=== PATIENT | male | born 1990 | race Caucasian/White ===

== ENCOUNTER 2017-06-01 20:43 | Emergency (ER) | payer SELFPAY ==
[2017-06-01] MEDS ORDERED: HYDROCODONE/ACETAMINOPHEN 5-325 MG 6 TAB/DSPK PO PRN (23:34)
[2017-06-01] MEDS ORDERED: PENICILLIN V POTASSIUM 500 MG TABLET PO ONE (23:35)
--- NOTE | 2017-06-01 23:36 | ER Document Report ---
ED General - General Chief Complaint: Toothache Stated Complaint: TOOTHACHE Time Seen by Provider: 06/01/17 23:24 Notes: Patient is a 26-year-old male who presents with severe pain to his left lower jaw. Describes it as a severe, constant, aching pain. Notes that eating or drinking anything worsens the pain. He has been trying ibuprofen and Tylenol at home without any significant improvement of the pain. He has not seen a dentist regarding this concern. No history of similar pains in the past. Denies any fever, constitutional symptoms, difficulty breathing or swallowing. TRAVEL OUTSIDE OF THE [place] IN LAST 30 DAYS: No Past Medical History - General Information source: Patient - Social History Smoking Status: Never Smoker Frequency of alcohol use: Occasional Drug Abuse: None Lives with: Family Family History: Reviewed & Not Pertinent Patient has suicidal ideation: No Patient has homicidal ideation: No Renal/ Medical History: Denies: Hx Peritoneal Dialysis Review of Systems - Review of Systems Notes: Constitutional: Negative for fever. HENT: Negative for sore throat. Positive for dental pain Eyes: Negative for visual changes. Cardiovascular: Negative for chest pain. Respiratory: Negative for shortness of breath. Gastrointestinal: Negative for abdominal pain, vomiting or diarrhea. Genitourinary: Negative for dysuria. Musculoskeletal: Negative for back pain. Skin: Negative for rash. Neurological: Negative for headaches, weakness or numbness. 10 point ROS negative except as marked above and in HPI. Physical Exam - Vital signs Vitals: Temp Pulse Resp BP Pulse Ox 98.5 F 80 16 148/88 H 100 06/01/17 21:41 06/01/17 21:41 06/01/17 21:41 06/01/17 21:41 06/01/17 21:41 Interpretation: Hypertensive Notes: PHYSICAL EXAMINATION: GENERAL: Well-appearing, well-nourished and in no acute distress. HEAD: Atraumatic, normocephalic. EYES: sclera anicteric, conjunctiva are normal. ENT: Moist mucous membranes. Diffusely poor dentition. Airway is widely patent. No mucosal inflammation or obvious abscesses. NECK: Normal range of motion LUNGS: Normal work of breathing HEART: 2+ radial pulses bilaterally EXTREMITIES: no pitting or edema. No cyanosis. NEUROLOGICAL: No focal neurological deficits. Moves all extremities spontaneously and on command. PSYCH: Normal mood, normal affect. SKIN: Warm, Dry, normal turgor, no rashes or lesions noted. Course - Re-evaluation Re-evalutation: 06/01/17 23:35 Presentation is most consistent with likely an infected tooth. Airway is patent. Vitals within normal limits. Patient is able swallow without any difficulty. There is no significant facial swelling. Patient will be started on antibiotics and a limited number of pain medications. I've instructed to follow-up with dentistry as earliest ability for definitive management. Return precautions and follow-up recommendations have been discussed at length. - Vital Signs Vital signs: Temp Pulse Resp BP Pulse Ox 98.6 F 71 17 144/87 H 98 06/01/17 23:40 06/01/17 23:40 06/01/17 21:42 06/01/17 23:40 06/01/17 23:40 Discharge - Discharge Clinical Impression: Pain, dental Condition: Good Disposition: HOME, SELF-CARE Additional Instructions: You have been seen for dental pain. It is very important that you follow-up with a dentist for definitive care. Please return if you develop fever greater than 101, swelling in your face, vomiting, difficulty breathing or swallowing, or any other symptoms that are concerning to you. For pain you should take ibuprofen 600 mg every 6 hours as needed. Prescriptions: Hydrocodone/Acetaminophen [[place] 5-325 Tablet] 1 each PO ASDIR PRN #6 tablet PRN Reason: Penicillin V Potassium [Penicillin Vk 500 mg Tablet] 500 mg PO BID #20 tablet
[2017-06-01 23:43] VITALS: BP 144/87
== END 2017-06-01 23:45 | disposition home or self-care (01) ==
LOC: ER 20:43
DX: K08.9 Disorder of teeth and supporting structures, unspecified (principal)
CPT/HCPCS: 99282

== ENCOUNTER 2017-07-05 14:46 | Emergency (ER) | payer SELFPAY | END 2017-07-05 15:40 | disposition left against medical advice (07) | LOC: ER 14:46 | DX: Z53.21 Procedure and treatment not carried out due to patient leaving prior to being seen by health care provider (principal) ==

== ENCOUNTER 2017-09-06 19:09 | Emergency (ER) | payer SELFPAY ==
[2017-09-06 19:21] VITALS: BP 134/69
--- NOTE | 2017-09-06 19:38 | ER Document Report ---
ED General - General Chief Complaint: Toothache Stated Complaint: TOOTHACHE Time Seen by Provider: 09/06/17 19:27 Mode of Arrival: Ambulatory Information source: Patient, Parent Notes: Patient is a 27-year-old male comes emergency room with what he states is a 5 day onset of left back lower dental pain. Patient states that his sent him here because she cannot take his inability to sleep. Patient states that she called his dentist he can get in to see the dentist for 3 weeks. Patient also interjects that he thinks this might be a wisdom tooth that is impacted. He denies any other medical problems. TRAVEL OUTSIDE OF THE [place] IN LAST 30 DAYS: No - HPI Onset: Other - 5 days Onset/Duration: Sudden, Constant, Worse Quality of pain: Stabbing, Throbbing. denies: No pain Severity: Severe Pain Level: 5 Associated symptoms: Earache Exacerbated by: Other - Eating temperature change hot and cold and air coming across the top Relieved by: Denies Similar symptoms previously: Yes Recently seen / treated by doctor: No Past Medical History - Social History Smoking Status: Current Every Day Smoker Cigarette use (# per day): Yes - 15 Frequency of alcohol use: Occasional Drug Abuse: None Lives with: Spouse/Significant other Family History: None, Reviewed & Not Pertinent Patient has suicidal ideation: No Patient has homicidal ideation: No Renal/ Medical History: Denies: Hx Peritoneal Dialysis Review of Systems - Review of Systems Constitutional: No symptoms reported EENT: No symptoms reported, Other - Dental pain Cardiovascular: No symptoms reported Respiratory: No symptoms reported Gastrointestinal: No symptoms reported Genitourinary: No symptoms reported Male Genitourinary: No symptoms reported Musculoskeletal: No symptoms reported Skin: No symptoms reported Hematologic/Lymphatic: No symptoms reported Neurological/Psychological: No symptoms reported -: Yes All other systems reviewed and negative Physical Exam - Vital signs Vitals: Temp Pulse Resp BP Pulse Ox 98.1 F 89 16 134/69 H 97 09/06/17 19:20 09/06/17 19:20 09/06/17 19:20 09/06/17 19:20 09/06/17 19:20 - General General appearance: Other - Uncomfortable. In distress: None - HEENT Head: Normocephalic, Other - Examination patient's left side of his face where the tooth on the left lower bottom showed no real sign of swelling or facial edema. Eyes: Normal Ears: Normal Tympanic membrane: Normal Sinus: Normal Nasal: Normal. No: Septal hematoma Mouth/Lips: Normal Mucous membranes: Normal, Moist Teeth diagram: 1 - Decayed tooth down to the gumline mild erythema with what appears to be an exudate coming from the anterior portion of the gumline Pharynx: Normal Neck: Normal - Respiratory Respiratory status: No respiratory distress Chest status: Nontender Breath sounds: Normal. No: Rales, Rhonchi, Stridor, Wheezing - Cardiovascular Rhythm: Regular Heart sounds: Normal auscultation Murmur: No - Neurological Cognition: Normal Orientation: AAOx4 Xi Coma Scale Eye Opening: Spontaneous [place] Coma Scale Verbal: Oriented [place] Coma Scale Motor: Obeys Commands Xi Coma Scale Total: 15 Speech: Normal - Skin Skin Temperature: Warm Skin Moisture: Dry Skin Color: Normal, [place] - Vital Signs Vital signs: Temp Pulse Resp BP Pulse Ox 98.1 F 89 16 134/69 H 97 09/06/17 19:20 09/06/17 19:20 09/06/17 19:20 09/06/17 19:20 09/06/17 19:20 - Transfer of Care Notes: 09/06/17 19:39 On physical examination patient told me that he has never experienced this type of pain in his life and feels like his head is going to explode that he cannot take the pain anymore. I offered him a dental block before he could finish telling him what it was he refused to have one done he is afraid of needles and does not want the dental block. I explained to him in depth that this may be simply gives him instant relief at least for a few hours and he did not care. Discharge - Discharge Condition: Stable Disposition: HOME, SELF-CARE Instructions: Clindamycin ([facility]), Toothache ([facility]) Additional Instructions: As we discussed we cannot fix the dental problem out of emergency room. You must follow-up with your primary care provider or your dentist for further intervention. Usually when we apply antibiotics to an infected tooth pain will go away within 24 hours. He may also take ibuprofen 800 mg every 8 hours with food to keep the pain down. Ibuprofen actually works on the general inflammation that is caused by the discomfort and pain. Should you have any increase in swelling spike a fever before you can get to the dentist return to ER for a recheck. If you do not have prescription coverage and you have a smart phone you may add an appendectomy that is free called good Rx this will allow you to purchase the medications necessary at a reduced cost. Prescriptions: Clindamycin HCl [Cleocin 75 mg Capsule] 1 cap PO Q6 40 Days #28 capsule Ibuprofen 800 mg PO TID #30 tablet Tramadol HCl 2 tab PO TID #20 tablet
== END 2017-09-06 20:10 | disposition home or self-care (01) ==
LOC: ER 19:09
DX: K04.7 Periapical abscess without sinus (principal); F17.210 Nicotine dependence, cigarettes, uncomplicated
CPT/HCPCS: 99282

== ENCOUNTER 2017-09-28 20:55 | Emergency (ER) | payer OTHER ==
--- NOTE | 2017-09-28 22:05 | RADIOLOGY REPORT (SQ) ---
EXAM DESCRIPTION: FINGER LEFT COMPLETED DATE/TIME: 09/28/2017 9:42 pm REASON FOR STUDY: injured left forefinger COMPARISON: None. NUMBER OF VIEWS: Three views. TECHNIQUE: AP, lateral, and oblique images acquired of the left second finger. LIMITATIONS: None. FINDINGS: MINERALIZATION: Normal. BONES: No acute fracture or dislocation. No worrisome bone lesions. SOFT TISSUES: No soft tissue swelling. No foreign body. OTHER: No other significant finding. IMPRESSION: No significant findings. COMMENT: SITE OF TRAUMA/COMPLAINT MARKED/STAMP COMPLETED: Yes TECHNICAL DOCUMENTATION: JOB ID: [id number] [employer]- All Rights Reserved
[2017-09-28] MEDS ORDERED: HYDROCODONE/ACETAMINOPHEN 5-325 MG TABLET PO ONE (23:03)
--- NOTE | 2017-09-28 23:05 | ER Document Report ---
HPI - HPI Patient complains to provider of: left index finger injury Pain Level: 4 Context: Patient is a 27-year-old male that comes emergency department for chief complaint of injury to his left index finger. He states he accidentally hit his finger with the stapler while working on a roof tonight. He states that there was some bleeding from the finger. His tetanus is up-to-date within 5 years. He denies any other injuries. He denies any daily medications. - DERM Skin Color: Normal Past Medical History - General Information source: Patient - Social History Smoking Status: Current Every Day Smoker Drug Abuse: None Lives with: Family Family History: None, Reviewed & Not Pertinent Patient has suicidal ideation: No Patient has homicidal ideation: No - Medical History Medical History: Negative Renal/ Medical History: Denies: Hx Peritoneal Dialysis Surgical Hx: Negative - Immunizations Immunizations up to date: Yes Hx Diphtheria, Pertussis, Tetanus Vaccination: Yes Vertical Provider Document - CONSTITUTIONAL General Appearance: WD/WN, No Apparent Distress - INFECTION CONTROL TRAVEL OUTSIDE OF THE [place] IN LAST 30 DAYS: No - HEENT HEENT: Atraumatic, Normal ENT Exam, Normocephalic - NECK Neck: Normal Inspection - RESPIRATORY Respiratory: Breath Sounds Normal, No Respiratory Distress O2 Sat by Pulse Oximetry: 98 - CARDIOVASCULAR Cardiovascular: Regular Rate, Regular Rhythm - GI/ABDOMEN Gastrointestinal: Abdomen Soft, Abdomen Non-Tender - BACK Back: Normal Inspection - MUSCULOSKELETAL/EXTREMETIES Musculoskeletal/Extremeties: Tender - Left index finger with a small superficial cut over the lateral side of the finger, small crack over the nail, no paronychia, normal capillary refill and sensation, range of motion is normal , normal hand, wrist, forearm exam otherwise. Course - Re-evaluation Re-evalutation: X-ray was performed before I saw the patient, reviewed and is negative. Patient has a cracked fingernail, has a tiny abrasion over the side of the finger, no repairable wounds, no concerning deficits or abnormalities noted on exam. No paronychia. Good capillary refill and sensation. Recommended he take [id number] anti-inflammatories, wound was cleaned and dressed while he was here, discussed follow-up and return precautions, patient states satisfaction and agreement. - Vital Signs Vital signs: Temp Pulse Resp BP Pulse Ox 98.3 F 85 16 136/82 H 98 09/28/17 21:30 09/28/17 21:30 09/28/17 21:30 09/28/17 21:30 09/28/17 21:30 - Diagnostic Test Radiology reviewed: Image reviewed, Reports reviewed Discharge - Discharge Clinical Impression: Injury of left index finger Qualifiers: Encounter type: initial encounter Qualified Code(s): S69.92XA - Unspecified injury of left wrist, hand and finger(s), initial encounter Condition: Stable Disposition: HOME, SELF-CARE Additional Instructions: Your x-ray does not show any fracture. Keep the cut of the finger clean, clean with soap and water, apply topical antibiotic, keep dressed. The swelling should resolve with time, this should take a few days before symptoms resolve. Take medication such as Tylenol or ibuprofen for pain. Follow-up with primary care. Return to the emergency department for any concerning or worsening symptoms including swelling, redness, discolored drainage, or any other concerning symptoms.
[2017-09-28 23:45] VITALS: BP 125/78
== END 2017-09-28 23:44 | disposition home or self-care (01) ==
LOC: ER 20:55
DX: S60.411A Abrasion of left index finger, initial encounter (principal); W29.8XXA Contact with other powered hand tools and household machinery, initial encounter; Y93.H3 Activity, building and construction; Y99.0 Civilian activity done for income or pay; F17.200 Nicotine dependence, unspecified, uncomplicated
CPT/HCPCS: 99283

== ENCOUNTER 2017-11-01 18:17 | Emergency (ER) | payer OTHER ==
[2017-11-01] MEDS ORDERED: HYDROCODONE/ACETAMINOPHEN 5-325 MG TABLET PO ONE (19:31)
--- NOTE | 2017-11-01 19:32 | ER Document Report ---
HPI - HPI Patient complains to provider of: r shoulder pain Onset: Other Onset/Duration: Worse - Years, worse over the past month Quality of pain: Sharp Pain Level: 4 Context: Patient presents complaining of right shoulder joint pain for several years that worsened over the past month. Patient states that he is unable to lift his arm due to the extreme pain today. Patient denies any new injury. 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 Associated Symptoms: Other - Right shoulder joint pain Exacerbated by: Movement Relieved by: Denies Similar symptoms previously: No Recently seen / treated by doctor: No - ROS ROS below otherwise negative: Yes Systems Reviewed and Negative: Yes All other systems reviewed and negative - MUSCULOSKELETAL Musculoskeletal: REPORTS: Extremity pain - DERM Skin Color: Normal Skin Problems: None Past Medical History - General Information source: Patient - Social History Smoking Status: Current Every Day Smoker Smoking Education Provided: Yes Frequency of alcohol use: None Drug Abuse: None Occupation: [employer] Lives with: Family Family History: None, Reviewed & Not Pertinent - Medical History Medical History: Negative Pulmonary Medical History: Reports: Hx Asthma - childhood Renal/ Medical History: Denies: Hx Peritoneal Dialysis Surgical Hx: Negative - Immunizations Immunizations up to date: Yes Hx Diphtheria, Pertussis, Tetanus Vaccination: Yes Vertical Provider Document - CONSTITUTIONAL Agree With Documented VS: Yes Exam Limitations: No Limitations General Appearance: WD/WN, No Apparent Distress - INFECTION CONTROL TRAVEL OUTSIDE OF THE [place] IN LAST 30 DAYS: No - HEENT HEENT: Atraumatic, Normocephalic - NECK Neck: Normal Inspection - RESPIRATORY Respiratory: Breath Sounds Normal, No Respiratory Distress - CARDIOVASCULAR Cardiovascular: Regular Rate, Regular Rhythm, No Murmur Pulses: Normal: Radial - BACK Back: Normal Inspection - MUSCULOSKELETAL/EXTREMETIES Musculoskeletal/Extremeties: MAEW, Tender - Right shoulder joint tenderness over AC joint. Tenderness increases with right shoulder extension, No Edema Notes: No dislocation or deformity - NEURO Level of Consciousness: Awake, Alert, Appropriate Motor/Sensory: No Motor Deficit - DERM Integumentary: Warm, Dry, No Rash Course - Diagnostic Test Radiology reviewed: Image reviewed, Reports reviewed Procedures - Immobilization Right Shoulder Pre-Proc Neuro Vasc Exam: Normal Immobilizer type: Shoulder immobilizer Performed by: PCT Post-Proc Neuro Vasc Exam: Normal Alignment checked and good: Yes Discharge - Discharge Clinical Impression: Sprain of shoulder, right Qualifiers: Encounter type: initial encounter Shoulder sprain type: unspecified sprain Qualified Code(s): S43.401A - Unspecified sprain of right shoulder joint, initial encounter Condition: Stable Disposition: HOME, SELF-CARE Instructions: Oral Narcotic Medication ([facility]), Shoulder Injury ([facility]), Sling as Treatment ([facility]) Additional Instructions: Return immediately for any new or worsening symptoms Followup with your primary care provider, call tomorrow to make a followup appointment Wear sling for the next 4 days and then remove. Follow-up with orthopedic doctor for further evaluation, call tomorrow for an appointment Prescriptions: Hydrocodone/Acetaminophen [[place] 5-325 Tablet] 1 each PO Q4 PRN #10 tablet PRN Reason: Forms: Smoking Cessation Education, Return to Work Referrals: [facility] [Provider Group] - Follow up tomorrow
--- NOTE | 2017-11-01 20:15 | RADIOLOGY REPORT (SQ) ---
EXAM DESCRIPTION: SHOULDER RIGHT 2 OR MORE VIEWS COMPLETED DATE/TIME: 11/01/2017 7:55 pm REASON FOR STUDY: r shoulder pain COMPARISON: None. NUMBER OF VIEWS: Three views. TECHNIQUE: Internal rotation, external rotation, and Y view images acquired of the right shoulder. LIMITATIONS: None. FINDINGS: MINERALIZATION: Normal. BONES: No acute fracture or dislocation. No worrisome bone lesions. JOINTS: No dislocation. VISUALIZED LUNGS AND RIBS: No pneumothorax. No rib fracture. SOFT TISSUES: No radiopaque foreign body. OTHER: No other significant finding. IMPRESSION: NO RADIOGRAPHIC EVIDENCE OF ACUTE INJURY. TECHNICAL DOCUMENTATION: JOB ID: [id number] 2010 [employer]- All Rights Reserved
[2017-11-01 20:33] VITALS: BP 130/92
== END 2017-11-01 21:00 | disposition home or self-care (01) ==
LOC: ER 18:17
DX: S43.401A Unspecified sprain of right shoulder joint, initial encounter (principal); F17.210 Nicotine dependence, cigarettes, uncomplicated; X50.0XXA Overexertion from strenuous movement or load, initial encounter; Y93.H3 Activity, building and construction; Y99.0 Civilian activity done for income or pay
CPT/HCPCS: 99283; 73030; L3650

== ENCOUNTER 2017-11-13 17:12 | Emergency (ER) | payer SELFPAY ==
[2017-11-13 17:22] VITALS: BP 131/65
[2017-11-13] MEDS ORDERED: LIDOCAINE 1% INJ-PF (10 MG/ML) 30 ML SDV INJ ONE (18:01)
--- NOTE | 2017-11-13 18:43 | ER Document Report ---
HPI - HPI Patient complains to provider of: Finger laceration Onset: Just prior to arrival Onset/Duration: Sudden Quality of pain: Achy Pain Level: 4 Context: Patient states he was attempting to cut a rope and accidentally missed cutting his finger. Patient with laceration over the knuckle of his left second finger. Patient is right-hand dominant. Patient reports tetanus immunization is currently up-to-date. Patient denies any change in mobility of finger. Associated Symptoms: Other - Finger laceration Exacerbated by: Movement Relieved by: Denies Similar symptoms previously: Yes Recently seen / treated by doctor: No - ROS ROS below otherwise negative: Yes Systems Reviewed and Negative: Yes All other systems reviewed and negative - NEURO Neurology: DENIES: Weakness - GASTROINTESTINAL Gastrointestinal: DENIES: Nausea - MUSCULOSKELETAL Musculoskeletal: REPORTS: Extremity pain - DERM Skin Problems: Laceration Past Medical History - General Information source: Patient - Social History Smoking Status: Current Every Day Smoker Chew tobacco use (# tins/day): No Frequency of alcohol use: Occasional Drug Abuse: None Occupation: [employer] Lives with: Family Family History: None, Reviewed & Not Pertinent Patient has suicidal ideation: No Patient has homicidal ideation: No Pulmonary Medical History: Reports: Hx Asthma - childhood Renal/ Medical History: Denies: Hx Peritoneal Dialysis Past Surgical History: Reports: Hx Tonsillectomy - Immunizations Immunizations up to date: Yes Hx Diphtheria, Pertussis, Tetanus Vaccination: Yes Vertical Provider Document - CONSTITUTIONAL Agree With Documented VS: Yes Exam Limitations: No Limitations General Appearance: WD/WN, No Apparent Distress - INFECTION CONTROL TRAVEL OUTSIDE OF THE [place] IN LAST 30 DAYS: No - HEENT HEENT: Atraumatic, Normocephalic - NECK Neck: Normal Inspection - RESPIRATORY Respiratory: No Respiratory Distress O2 Sat by Pulse Oximetry: 98 - MUSCULOSKELETAL/EXTREMETIES Musculoskeletal/Extremeties: MAEW, FROM, Tender - left 2nd finger lac over PIP joint, No Edema Notes: no tendon deficit - NEURO Level of Consciousness: Awake, Alert, Appropriate Motor/Sensory: No Motor Deficit, No Sensory Deficit - DERM Integumentary: Warm, Laceration Course - Vital Signs Vital signs: Temp Pulse Resp BP Pulse Ox 99.3 F 95 16 131/65 H 98 11/13/17 17:21 11/13/17 17:21 11/13/17 17:21 11/13/17 17:21 11/13/17 17:21 Procedures - Immobilization Left 2nd digit Pre-Proc Neuro Vasc Exam: Normal Immobilizer type: Finger splint (Static) Performed by: RN Post-Proc Neuro Vasc Exam: Normal Alignment checked and good: Yes - Laceration/Wound Repair Left 2nd digit Wound length (cm): 1.5 Wound's Depth, Shape: Linear Anesthetic type: 1% Lidocaine Wound explored: Clean, No foreign body removed Suture Size/Type: 5:0, Nylon Number of Sutures: 3 Layer Closure?: No Post-procedure wound care: Sterile dressing applied, Splint applied Post-procedure NV exam normal: Yes Complications: No Discharge - Discharge Clinical Impression: Finger laceration Qualifiers: Encounter type: initial encounter Finger: index finger Damage to nail status: without damage Foreign body presence: without foreign body Laterality: left Qualified Code(s): S61.211A - Laceration without foreign body of left index finger without damage to nail, initial encounter Condition: Stable Disposition: HOME, SELF-CARE Additional Instructions: Return immediately for any new or worsening symptoms Followup with your primary care provider, call tomorrow to make a followup appointment Suture removal in 11 days LACERATION CARE: Your laceration has been sutured to keep the skin edges aligned during healing. The time of suture removal depends on the nature and location of your cut. Please follow the care instructions the doctor has outlined for you and return for further care, according to the schedule you've been given. Keep the wound and dressing clean. Unless you were told otherwise, you may shower daily, blotting the wound dry with a clean, unused towel. At other times, If the dressing gets wet or blood soaked, remove it and blot the wound dry, then reapply a new dressing. Unless you were instructed otherwise, dressings should be changed at least daily. If any signs of infection occur (swelling, redness, drainage, increasing tenderness, red streaks, tender lumps in the armpit or groin above the laceration, or fever), see the doctor immediately. SOAP CLEANSING: Gently wash the wound daily using a mild soap (like Ivory, Phisoderm, Neutrogena). Use warm water, rubbing gently until all debris, ooze, and crusting have been washed from the wound. Allow to dry briefly (about 10 minutes) after cleaning. Repeat this cleansing at least three times a day for the first two days and then once or twice a day. ANTIBIOTIC OINTMENT PROTECTION: Your wounds are such that dressing them is not practical or optional. After cleansing, you should apply a thin coating of antibiotic ointment ( Bacitracin, not Neosporin) to the wounds at least three times daily. This lessens infection risk, and may decrease the amount of scarring. Use a q-tip or dull butter knife, not your finger, to apply this ointment. Any debris or ooze which builds up in the ointment should be gently rubbed off with a sterile gauze pad. Harder crusting may need to be gently scrubbed off with a clean wash cloth with soap and warm water, perhaps applying a warm, wet wash cloth to the wound for ten minutes first. Development of redness, severe itching, or blistering may mean allergy to the ointment. See the doctor. ORAL NARCOTIC MEDICATION: You have been given a prescription for pain control. This medication is a narcotic. It's best taken with food, as nausea can result if taken on an empty stomach. Don't operate machinery or drive within six hours of taking this medication. Do not combine this medicine with alcohol, or with any medication which can cause sedation (such as cold tablets or sleeping pills) unless you get permission from the physician. Narcotics tend to cause constipation. If possible, drink plenty of fluids and eat a diet high in fiber and fruits. FOLLOW-UP CARE: Your sutures should be removed in _11____ days. To facilitate a timely removal of your sutures, you may return to the Emergency Department at [facility]. You do not need to call for an appointment, but the best time to come in for suture removal is early in the morning. If you have been referred to another physician for follow-up care, call that physicians office for an appointment as you were instructed. If you experience a significant change in your laceration, or if you are concerned there may be an infection (swelling, redness, drainage, increasing tenderness, red streaks, tender lumps in the armpit or groin above the laceration, or fever) , return to the Emergency Department immediately re-evaluation. Referrals: YUVAL DELGADO, [ACTIVE STAFF] - Follow up as needed
== END 2017-11-13 19:16 | disposition home or self-care (01) ==
LOC: ER 17:12
PROC: 0HQGXZZ Repair Left Hand Skin, External Approach (ICD-10-PCS; principal; 2017-11-13)
DX: S61.211A Laceration without foreign body of left index finger without damage to nail, initial encounter (principal); W45.8XXA Other foreign body or object entering through skin, initial encounter; F17.200 Nicotine dependence, unspecified, uncomplicated
CPT/HCPCS: 99282; 12001; J3490

== ENCOUNTER 2018-01-06 11:40 | Emergency (ER) | payer SELFPAY ==
[2018-01-06] MEDS ORDERED: PENICILLIN V POTASSIUM 500 MG TABLET PO ONE (13:43)
[2018-01-06] MEDS ORDERED: HYDROCODONE/ACETAMINOPHEN 5-325 MG TABLET PO ONE (13:43)
[2018-01-06] MEDS ORDERED: IBUPROFEN 800 MG TABLET PO ONE (13:43)
--- NOTE | 2018-01-06 13:47 | ER Document Report ---
HPI - HPI Patient complains to provider of: jaw pain Pain Level: 5 Context: 27 yo male c/o left jaw pain and swelling x 2 days no fever Associated Symptoms: None Exacerbated by: Food, Other - swallowing Relieved by: Denies Similar symptoms previously: No Recently seen / treated by doctor: No - ROS Systems Reviewed and Negative: Yes All other systems reviewed and negative Past Medical History - General Information source: Patient - Social History Smoking Status: Current Every Day Smoker Frequency of alcohol use: Occasional Drug Abuse: None Occupation: construction Lives with: Family Family History: None, Reviewed & Not Pertinent - Medical History Medical History: Negative Pulmonary Medical History: Reports: Hx Asthma - childhood Renal/ Medical History: Denies: Hx Peritoneal Dialysis Past Surgical History: Reports: Hx Tonsillectomy - Immunizations Immunizations up to date: Yes Hx Diphtheria, Pertussis, Tetanus Vaccination: Yes Vertical Provider Document - CONSTITUTIONAL Agree With Documented VS: Yes Exam Limitations: No Limitations - INFECTION CONTROL TRAVEL OUTSIDE OF THE [place] IN LAST 30 DAYS: No - HEENT HEENT: Atraumatic Mouth Diagram: 1 - pain, advanced decay. no gingival abscess - NECK Neck: Normal Inspection, Supple - RESPIRATORY Respiratory: Breath Sounds Normal, No Respiratory Distress O2 Sat by Pulse Oximetry: 98 - CARDIOVASCULAR Cardiovascular: Regular Rate, Regular Rhythm - NEURO Level of Consciousness: Awake, Alert, Appropriate - DERM Integumentary: Warm, Dry Course - Re-evaluation Re-evalutation: 01/06/18 13:46 H&P c/w dental infection. no signs of Mahin's or peritonsillar abscess. no airway compromise - Vital Signs Vital signs: Temp Pulse Resp BP Pulse Ox 98.4 F 81 18 128/75 H 98 01/06/18 11:57 01/06/18 11:57 01/06/18 11:57 01/06/18 11:57 01/06/18 11:57 Discharge - Discharge Clinical Impression: Pain, dental Condition: Stable Disposition: HOME, SELF-CARE Instructions: [facility], Penicillin V K ([facility]), Toothache ([facility]), Oral Narcotic Medication ([facility]) Additional Instructions: take medications as prescribed follow up with dental for further evaluation and treatment Forms: Return to Work
[2018-01-06 14:15] VITALS: BP 119/82
== END 2018-01-06 14:10 | disposition home or self-care (01) ==
LOC: ER 11:40
DX: K08.9 Disorder of teeth and supporting structures, unspecified (principal); R68.84 Jaw pain; F17.200 Nicotine dependence, unspecified, uncomplicated
CPT/HCPCS: 99283

== ENCOUNTER 2018-02-21 17:59 | Emergency (ER) | payer OTHER ==
[2018-02-21 18:10] VITALS: BP 136/80
--- NOTE | 2018-02-21 18:18 | ER Document Report ---
ED Head/Face/Scalp Injury - General Chief Complaint: Laceration Stated Complaint: STITCHES Time Seen by Provider: 02/21/18 18:10 Mode of Arrival: Ambulatory Information source: Patient Notes: 27-year-old male presents to ED for complaint of laceration to the right forehead. He states he stood up too fast to hit his head on a towel dispenser causing a laceration to his right side of his forehead. He is alert and oriented speaking in full sentences. Pupils equal and reactive light. He ambulates with a even steady gait. He is in handcuffs with a sharp with him. TRAVEL OUTSIDE OF THE [place] IN LAST 30 DAYS: No - HPI Patient complains to provider of: Laceration Injury to: Forehead Location of problem: Forehead Occurred: Just prior to arrival Where: Other - nursing home Timing: Still present Context: Laceration Loss consciousness: No loss of consciousness Remembers: Injury, Coming to hospital - Related Data Allergies/Adverse Reactions: naproxen Allergy (Verified 02/21/18 18:03) tramadol Allergy (Verified 02/21/18 18:03) Past Medical History - General Information source: Patient - Social History Smoking Status: Current Every Day Smoker Cigarette use (# per day): Yes - ppd Chew tobacco use (# tins/day): No Smoking Education Provided: Yes - 4 min Frequency of alcohol use: None Drug Abuse: None Occupation: in nursing home right now Lives with: Other - nursing home right now Family History: None, Reviewed & Not Pertinent Patient has suicidal ideation: No Patient has homicidal ideation: No - Past Medical History Cardiac Medical History: Reports: None Pulmonary Medical History: Reports: Hx Asthma - childhood EENT Medical History: Reports: None Neurological Medical History: Reports: None Endocrine Medical History: Reports: None Renal/ Medical History: Reports: None Malignancy Medical History: Reports None GI Medical History: Reports: None Musculoskeltal Medical History: Reports None Skin Medical History: Reports None Psychiatric Medical History: Reports: None Traumatic Medical History: Reports: None Infectious Medical History: Reports: None Past Surgical History: Reports: None, Hx Adenoidectomy, Hx Tonsillectomy - Immunizations Immunizations up to date: Yes Hx Diphtheria, Pertussis, Tetanus Vaccination: Yes Review of Systems - Review of Systems Constitutional: No symptoms reported EENT: No symptoms reported Cardiovascular: No symptoms reported Respiratory: No symptoms reported Gastrointestinal: No symptoms reported Genitourinary: No symptoms reported Male Genitourinary: No symptoms reported Musculoskeletal: No symptoms reported Skin: Other - laceration on right forehead Hematologic/Lymphatic: No symptoms reported Neurological/Psychological: No symptoms reported -: Yes All other systems reviewed and negative Physical Exam - Vital signs Vitals: Temp Pulse Resp BP Pulse Ox 98.5 F 82 16 136/80 H 100 02/21/18 18:09 02/21/18 18:09 02/21/18 18:09 02/21/18 18:09 02/21/18 18:09 Interpretation: Normal - General General appearance: Appears well, Alert - HEENT Head: Open wounds, Tenderness Eyes: Normal Pupils: PERRL Ears: Normal External canal: Normal Tympanic membrane: Normal Sinus: Normal Nasal: Normal Mouth/Lips: Normal Mucous membranes: Normal Pharynx: Normal Neck: Normal - Respiratory Respiratory status: No respiratory distress Chest status: Nontender Breath sounds: Normal Chest palpation: Normal - Cardiovascular Rhythm: Regular Heart sounds: Normal auscultation Murmur: No - Abdominal Inspection: Normal Distension: No distension Bowel sounds: Normal Tenderness: Nontender Organomegaly: No organomegaly - Back Back: Normal, Nontender - Extremities General upper extremity: Normal inspection, Nontender, Normal color, Normal ROM , Normal temperature General lower extremity: Normal inspection, Nontender, Normal color, Normal ROM , Normal temperature, Normal weight bearing. No: Mague's sign - Neurological Neuro grossly intact: Yes Cognition: Normal Orientation: AAOx4 Xi Coma Scale Eye Opening: Spontaneous Xi Coma Scale Verbal: Oriented [place] Coma Scale Motor: Obeys Commands Xi Coma Scale Total: 15 Speech: Normal Motor strength normal: LUE, RUE, LLE, RLE Sensory: Normal - Psychological Associated symptoms: Normal affect, Normal mood - Skin Skin Temperature: Warm Skin Moisture: Dry Skin Color: Normal Skin irregularity: Laceration Location of irregularity: Face Course - Vital Signs Vital signs: Temp Pulse Resp BP Pulse Ox 98.5 F 82 16 136/80 H 100 02/21/18 18:09 02/21/18 18:09 02/21/18 18:09 02/21/18 18:09 02/21/18 18:09 Procedures - Laceration/Wound Repair Right forehead Time completed: 18:30 Wound length (cm): 1.5 Wound's Depth, Shape: Superficial, Linear Laceration pre-procedure: Sterile PPE donned, Sterile drapes applied, Shur- Clens applied Anesthetic type: Other Volume Anesthetic (mLs): 0 Wound explored: Contaminated Irrigated w/ Saline (mLs): 300 Wound Repaired With: Steri-strips, Dermabond Layer Closure?: No Post-procedure NV exam normal: Yes Complications: No Discharge - Discharge Clinical Impression: Forehead laceration Qualifiers: Encounter type: initial encounter Qualified Code(s): S01.81XA - Laceration without foreign body of other part of head, initial encounter Condition: Stable Disposition: HOME, SELF-CARE Instructions: Family Physicians / Practices Additional Instructions: Facial Laceration A laceration on the face usually heals quickly. Our treatment goal will be to avoid an unsightly scar or stitch-duggan. Your cut has been closed with the best techniques to avoid scarring, but a great deal depends on how well you protect the laceration -- and on your inherited tendency to scar. As facial cuts are usually caused by a blunt injury, it's usually best to rest for a day to avoid swelling. Do not allow any bumping or rubbing of the area. Keep the stitches dry. Follow the treatment plan the doctor has discussed with you and DO NOT DELAY getting the stitches out. Once stitches are removed, continue to protect the area from trauma and sunlight (use a sunscreen) for about six months. If any signs of infection occur (swelling, redness, increasing tenderness, red streaks, tender lumps in the neck or near the ear on the side of the laceration, or fever), see the doctor immediately. SOAP CLEANSING: Gently wash the wound daily using a mild soap (like Ivory, Phisoderm, Neutrogena). Use warm water, rubbing gently until all debris, ooze, and crusting have been washed from the wound. Allow to dry briefly (about 10 minutes) after cleaning. Repeat this cleansing at least three times a day for the first two days and then once or twice a day. Care of Steri-Strip Closure Your cut has been closed up with a special surgical tape. For this type of cut, it can replace stitches. You must protect the wound just as you would with stitches, however. For the first few days, keep the wound area completely dry. This also means you should avoid activity which makes you sweat. Do not move the area if motion stretches or wrinkles the strips. Don't allow the area to be bumped -- if bleeding occurs, the blood can make the strips loosen. The strips are somewhat waterproof. After a few days, the physician may allow you to shower. Be sure to ask if it's OK. Do not remove the tape until it peels off by itself. At that time, the wound should be healed. Dermabond (Skin Adhesive Closure) Skin adhesive (such as Dermabond) is a quick-drying glue that remains slightly flexible while it holds wound edges together. It can substitute for stitches on some cuts. The film will usually fall off the skin after 5 to 10 days. Keep the wound area clean and dry. Do not soak or scrub the wound. Don't swim. You can shower briefly after 24 hours. Gently blot the area dry with a soft towel. Don't apply ointments. If there is a dressing, change it immediately if it gets wet. Do not place tape directly over the adhesive film, because the tape may pull the film off your skin as you remove it. Don't bump the wound area. If there's risk of injury, keep the area well- padded. Avoid stretching of the skin. Do not scratch or pick at the adhesive film. Avoid prolonged exposure to sunlight or tanning lamps. Return if there is increasing pain, swelling, redness, or drainage, or if the wound edges seem to open or separate. FOLLOW-UP CARE: If you have been referred to a physician for follow-up care, call the physician s office for an appointment as you were instructed or within the next two days. If you experience worsening or a significant change in your symptoms, notify the physician immediately or return to the Emergency Department at any time for re-evaluation. Forms: Elevated Blood Pressure, Smoking Cessation Education
[2018-02-21] MEDS ORDERED: ACETAMINOPHEN 325 MG TABLET PO ONE (18:20)
== END 2018-02-21 18:35 | disposition home or self-care (01) ==
LOC: ER 17:59
DX: S01.81XA Laceration without foreign body of other part of head, initial encounter (principal); W22.09XA Striking against other stationary object, initial encounter; Y92.149 Unspecified place in prison as the place of occurrence of the external cause; F17.210 Nicotine dependence, cigarettes, uncomplicated; Z71.6 Tobacco abuse counseling; Z88.8 Allergy status to other drugs, medicaments and biological substances; Z88.5 Allergy status to narcotic agent
CPT/HCPCS: 99283